=== PATIENT | female | born 1950 | race Caucasian/White ===

== ENCOUNTER → 2018-08-03 09:32 | Outpatient (CLI) | payer MEDICARE | END | disposition home or self-care (01) | LOC: D.RAD 09:32 | DX: N20.0 Calculus of kidney (principal); D72.829 Elevated white blood cell count, unspecified; R31.9 Hematuria, unspecified ==

== ENCOUNTER → 2018-08-03 17:53 | Outpatient (CLI) | payer MEDICARE | END | disposition home or self-care (01) | LOC: D.LABREF 17:53 | DX: D72.829 Elevated white blood cell count, unspecified (principal); R31.9 Hematuria, unspecified ==

== ENCOUNTER → 2018-08-09 09:42 | Outpatient (CLI) | payer MEDICARE | END | disposition home or self-care (01) | LOC: D.CT 09:42 | DX: Z87.442 Personal history of urinary calculi (principal) ==

== ENCOUNTER 2018-09-13 05:25 | Day surgery (SDC) | payer MEDICARE ==
[2018-09-11 09:43] LABS: CALC OSMOLALITY 283 mosm/kg (275-300); CALCIUM 8.9 mg/dL (8.5-10.1); CARBON DIOXIDE 27.5 mmol/L (21.0-32.0); CHLORIDE - SERUM 106 mmol/L (98-107); CREATININE - SERUM 0.8 mg/dL (0.6-1.3); GLUCOSE 100 mg/dL (74-106); SODIUM 142 mmol/L (136-145); UREA NITROGEN 14 mg/dL (7-18); eGFR NON AFRICAN AMERICAN 75 mL/min (90-120)
[2018-09-11 09:53] LABS: APTT 27.3 SECONDS (22.8-39.4); INR 0.96 (0.85-1.17); PROTIME 12.4 SECONDS (11.6-15.0)
[2018-09-11 10:14] LABS: BASOPHILS 0.4 % (0-2); EOSINOPHILS 1.8 % (0-7); HEMATOCRIT 44.3 % (36.0-48.0); HEMOGLOBIN 14.5 g/dL (12-16); IMMATURE GRANULOCYTES 0.1 % (0-5); LYMPHOCYTES 21.2 % (15-50); MCH 28.4 pg (26.0-34.0); MCHC 32.7 g/dL (31.0-37.0); MCV 86.9 fL (80.0-100.0); MEAN PLATELET VOLUME 9.5 fL (7.4-10.4); MONOCYTES 6.9 % (2-11); NEUTROPHILS 69.6 % (40-80); PLATELET COUNT 276 10x3/uL (130-400); RDW 15.7 % (11.5-14.5); WBC 7.4 10x3/uL (4.8-10.8)
[~2018-09-13] VITALS: Ht 157.5 cm; Wt 83.9 kg
--- NOTE | ~2018-09-13 | OP ---
PATIENT NAME: JULISSA LYNN MEDICAL RECORD: [id number] :48 LOCATION:[facility] ADMISSION DATE: SURGEON: MILAN WESTBROOK MD DATE OF OPERATION: 09/13/2018 SURGEON: Milan Westbrook MD ANESTHESIA: TIVA by Emmy Albert CRNA DIAGNOSIS: Right renal stone, 6 mm. PROCEDURE: Right ESWL times 3000 shocks. FINDINGS: Radiodense right renal stone. BLOOD LOSS: None. CLINICAL HISTORY: This is a 68-year-old female, who has a right renal stone. Earlier today, she had a right ureteral stent inserted. Since she had antibiotics at that time, no further antibiotics were given at this time. She comes now to have lithotripsy performed on her stone. DESCRIPTION OF PROCEDURE: The patient was given IV sedation. The stone was visualized and targeted in 2 planes. 3000 shocks were given to the stone. At the end of treatment, the stone was seen to have broken up and spread out in terms of radiodensity. The patient was then brought back to the preoperative holding area where she will be discharged home. I will see her in followup in 2 weeks' time with a KUB. If there are no further stone particles at that time, then the stent will be removed by pulling on the string. TRANSINT:[id number] Voice Confirmation ID: [id number] DOCUMENT ID: [id number] MILAN WESTBROOK MD at 1347 CC: [id number] DICTATION DATE: 09/13/18 1053 PRECISION FILER HAND: 09/13/18 1105 [id number] [place] [address]
--- NOTE | ~2018-09-13 | OP ---
PATIENT NAME: JULISSA LYNN MEDICAL RECORD: [id number] :49 LOCATION:[facility] ADMISSION DATE: SURGEON: MILAN WESTBROOK MD DATE OF OPERATION: 09/13/2018 SURGEON: Milan Westbrook MD ANESTHESIA: TIVA by Shaji Hamilton CRNA DIAGNOSIS: A 6 mm right renal stone. PROCEDURES: Cystoscopy, right retrograde pyelogram, right ureteral stent insertion 6-Guamanian x 24 cm with string attached. FINDINGS: Single ureteral orifices bilaterally. No hydronephrosis. BLOOD LOSS: None. CLINICAL HISTORY: This is a 68-year-old female, who has a previous history of kidney stones. She was formerly being managed by Dr. Portillo. I obtained a CT scan to determine what her stone burden is. The CT scan showed gallstones in the right lower pole, 6-mm renal stone. KUB shows that the stone is radiodense. She comes today to have a right ureteral stent inserted. Later today, she will have a right lithotripsy. SHE IS ALLERGIC TO CIPRO. She was given Ancef IV unit controller to the OR. DESCRIPTION OF PROCEDURE: The patient was given IV sedation. She was then placed in lithotomy position. Cystoscopy was performed. She has single ureteral orifices with no bladder tumors. Fluoroscopy did not readily identify the stone. This may be an issue with our equipment. I tried to obtain a retrograde pyelogram, but unfortunately, the contrast was not diluted and therefore we could not see the stone as the contrast obscured everything. There was no hydronephrosis in the ureter. A Sensor wire was then put through the lumen of the ureteral catheter. The ureteral catheter was then removed and over the wire we inserted a 6-Guamanian x 24 cm ureteral stent. Once the stent was in correct position, the wire was entirely withdrawn. The distal end of the stent was pushed into the bladder using a pusher. The bladder was then emptied through the scope and then the scope was removed. The string on the distal end of stent was maintained. It was taped to the suprapubic area with a small piece of Tegaderm. The patient was then awakened and brought to recovery room. Later today, we will bring her for ESWL. TRANSINT:[id number] Voice Confirmation ID: [id number] DOCUMENT ID: [id number] MILAN WESTBROOK MD at 0920 CC: [id number] DICTATION DATE: 09/13/1828 SURVEY OPERATIONS DIRECTOR: 09/13/18 0910 PRE [facility] [address] [place] [address]
[~2018-09-13 05:25] MED LIST: FEXOFENADINE HC60 MG PO; FLUTICASONE PRO16 GM NASAL; NEXIUM20 MG PO; NORVASC5 MG PO
[2018-09-13 06:52] VITALS: BP 124/75; Ht 157.5 cm; Wt 83.9 kg
== END 2018-09-13 12:20 | disposition home or self-care (01) ==
LOC: D.OPS 05:25 → D.PAN 07:30 → D.OPS 08:50
PROVIDERS: Anesthesiology
DX: N20.0 Calculus of kidney (principal); Z88.1 Allergy status to other antibiotic agents; Z01.812 Encounter for preprocedural laboratory examination

== ENCOUNTER → 2018-09-27 09:57 | Outpatient (CLI) | payer MEDICARE ==
[2018-09-13 06:52] VITALS: BMI 33.9
== END | disposition home or self-care (01) ==
LOC: D.RAD 09:57
DX: Z87.442 Personal history of urinary calculi (principal)